=== PATIENT | female | born 1960 | race Caucasian/White ===

== ENCOUNTER → 2024-03-14 13:41 | Outpatient (REF) | payer BC, SELFPAY | LOC: WDC 13:41 | PROVIDERS: ATTENDING PHYSICIAN Nurse Practitioner | DX: Z78.0 Asymptomatic menopausal state (principal); Z12.31 Encounter for screening mammogram for malignant neoplasm of breast | CPT/HCPCS: 77063; 77067; 77080 ==

== ENCOUNTER → 2024-06-21 08:54 | Outpatient (REF) | payer BC, SELFPAY | LOC: HWRAD 08:54 | DX: E04.1 Nontoxic single thyroid nodule (principal) | CPT/HCPCS: 76536 ==

== ENCOUNTER → 2024-07-04 14:07 | Outpatient (REF) | payer BC, SELFPAY | LOC: WDC 14:07 | PROVIDERS: ATTENDING PHYSICIAN Internal Medicine | DX: R92.2 Inconclusive mammogram (principal) | CPT/HCPCS: 76641 ==

== ENCOUNTER → 2024-12-28 07:30 | Outpatient (REF) | payer BC, SELFPAY | LOC: RAD 07:30 | DX: R25.2 Cramp and spasm (principal); I83.892 Varicose veins of left lower extremity with other complications | CPT/HCPCS: 93922; 93925; 93970 ==

== ENCOUNTER → 2025-02-13 14:08 | Outpatient (REF) | payer BC, SELFPAY | LOC: HWRAD 14:08 | DX: M25.552 Pain in left hip (principal) | CPT/HCPCS: 73502 ==

== ENCOUNTER → 2025-04-07 15:11 | Outpatient (REF) | payer BC, SELFPAY | LOC: HWRAD 15:11 | DX: Z91.81 History of falling (principal); M25.512 Pain in left shoulder; R51.9 Headache, unspecified | CPT/HCPCS: 70450; 73030 ==

== ENCOUNTER → 2025-06-06 09:58 | Outpatient (REF) | payer BC, SELFPAY | LOC: HWRAD 09:58 | DX: E04.2 Nontoxic multinodular goiter (principal) | CPT/HCPCS: 76536 ==